=== PATIENT | male | born 1970 | race Two or more races ===

== ENCOUNTER 2024-07-23 18:18 | Inpatient (IN) | payer MEDICARE, OTHER ==
[~2024-07-23] VITALS: Ht 170.2 cm; Wt 101.6 kg
[2024-07-23] MEDS ORDERED: GABA-536 PO (18:35)
[2024-07-23] MEDS ORDERED: PHEN200C5 PO (18:35)
[2024-07-23] MEDS ORDERED: GLUC1KIT SQ (18:41)
[2024-07-23] MEDS ORDERED: FURO20TA4 PO (18:41)
[2024-07-23] MEDS ORDERED: MAGN400T26 PO (18:41)
[2024-07-23] MEDS ORDERED: MELA5TAB21 PO (18:41)
[2024-07-23] MEDS ORDERED: DOCU100C36 PO (18:41)
[2024-07-23] MEDS ORDERED: OXCA600T8 PO (18:41)
[2024-07-23] MEDS ORDERED: ATOR20TA PO (18:41)
[2024-07-23] MEDS ORDERED: BENZ0.5T43 PO (18:41)
[2024-07-23] MEDS ORDERED: LUBI24CA5 PO (18:41)
[2024-07-23] MEDS ORDERED: POLY17PO4 PO (18:41)
[2024-07-23] MEDS ORDERED: INSU100V28 SQ (18:41)
[2024-07-23] MEDS ORDERED: DEXT37.54 PO (18:41)
[2024-07-23] MEDS ORDERED: ACET325C7 PO (18:41)
[2024-07-23] MEDS ORDERED: FERR325T28 PO (18:41)
[2024-07-23 18:50] LABS: BASOPHILS # (AUTO) 0.1 K/UL (0.0-0.2); BASOPHILS % (AUTO) 0.5 % (0.0-2.0); EOSINOPHILS % (AUTO) 0.3 % (0.0-7.0); HEMATOCRIT 29.6 % (36.7-47.1); HEMOGLOBIN 9.4 g/dL (12.5-16.3); LYMPHOCYTES % (AUTO) 8.5 % (20.5-51.5); MEAN CORPUSCULAR HEMOGLOBIN 23.3 uug (23.8-33.4); MEAN CORPUSCULAR HGB CONC 32 g/dL (32.5-36.3); MEAN CORPUSCULAR VOLUME 73.7 fL (73.0-96.2); MONOCYTES # (AUTO) 0.6 K/uL (0.1-1.30); MONOCYTES % (AUTO) 4.8 % (0.0-11.0); NEUTROPHILS # (AUTO) 10.6 K/uL (1.8-8.9); NEUTROPHILS % (AUTO) 85.9 % (38.5-71.5); PLATELET COUNT (AUTO) 493 K/uL (152-348); RED BLOOD CELL COUNT(AUTO) 4.02 MIL/uL (4.06-5.63); RED CELL DISTRIBUTION WIDTH 21.4 % (12.1-16.2); WHITE BLOOD COUNT (AUTO) 12.4 K/uL (3.6-10.2)
[2024-07-23 18:52] LABS: DIFFERENTIAL COMMENT 1
[2024-07-23] MEDS ORDERED: PHENYTOIN SODIUM 250 MG/5 ML VIAL IV ONE (18:52)
[2024-07-23 19:00] LABS: CALCIUM 9.2 mg/dL (8.5-10.1); CREATININE 0.9 mg/dL (0.6-1.3); POTASSIUM 4.2 mmol/L (3.5-5.1)
[2024-07-23] MEDS: PHENYTOIN SODIUM IV 1,000 MG in IV NORMAL SALINE 100 ML IV ONE (19:10)
[2024-07-23] MEDS: IV NS 1000 ML 1,000 ML IV ONE (19:10)
[2024-07-23 19:13] LABS: ALBUMIN 2.4 g/dL (3.4-5.0); BILIRUBIN,TOTAL 0.2 mg/dL (0.2-1.0); PHENYTOIN (DILANTIN) 6.1 ug/mL (10.0-20.0); TOTAL PROTEIN, SERUM 8.5 g/dL (6.4-8.2)
[2024-07-24] VITALS (8 sets, daily range): BP systolic 111–130; BP diastolic 60–70; TEMP 98.1–99.5; O2SAT 93–100
[2024-07-24] MEDS ORDERED: LORAZEPAM 2 MG/1 ML VIAL IV PRN (00:30)
[2024-07-24] MEDS ORDERED: REMEDY ESSENTIAL ZINC PASTE 113 GM TP PRN (00:30)
[2024-07-24] MEDS ORDERED: MAGNESIUM HYDROXIDE 30 ML LIQUID UDC PO PRN (00:30)
[2024-07-24] MEDS ORDERED: ONDANSETRON 4 MG/2 ML VIAL IV PRN (00:30)
[2024-07-24] MEDS ORDERED: PHENYTOIN SODIUM 100 MG/2 ML VIAL IV ONE (05:00)
[2024-07-24] MEDS: ACETAMINOPHEN 325 MG TABLET PO PRN (05:09)
[2024-07-24] MEDS: IV NS 1000 ML 1,000 ML IV PRN (05:10)
[2024-07-24] MEDS: PHENYTOIN SODIUM IV SCH (05:11)
[2024-07-24] MEDS: NORMAL SALINE IV SCH (05:11)
[2024-07-24] MEDS: PANTOPRAZOLE SODIUM 40 MG TABLET.DR PO SCH (06:20)
[2024-07-24 06:44] LABS: BASOPHILS # (AUTO) 0.1 K/UL (0.0-0.2); BASOPHILS % (AUTO) 0.5 % (0.0-2.0); EOSINOPHILS % (AUTO) 0.1 % (0.0-7.0); HEMATOCRIT 24.6 % (36.7-47.1); LYMPHOCYTES % (AUTO) 10.4 % (20.5-51.5); MEAN CORPUSCULAR HEMOGLOBIN 23.8 uug (23.8-33.4); MEAN CORPUSCULAR HGB CONC 33 g/dL (32.5-36.3); MEAN CORPUSCULAR VOLUME 73.2 fL (73.0-96.2); MONOCYTES # (AUTO) 0.8 K/uL (0.1-1.30); MONOCYTES % (AUTO) 9.2 % (0.0-11.0); NEUTROPHILS # (AUTO) 7.3 K/uL (1.8-8.9); NEUTROPHILS % (AUTO) 79.8 % (38.5-71.5); PLATELET COUNT (AUTO) 374 K/uL (152-348); RED BLOOD CELL COUNT(AUTO) 3.36 MIL/uL (4.06-5.63); RED CELL DISTRIBUTION WIDTH 20.9 % (12.1-16.2); WHITE BLOOD COUNT (AUTO) 9.2 K/uL (3.6-10.2)
[2024-07-24 06:55] LABS: CALCIUM 8.3 mg/dL (8.5-10.1); CREATININE 0.8 mg/dL (0.6-1.3); DIFFERENTIAL COMMENT 1; MAGNESIUM 1.5 mg/dL (1.8-2.4); PHENYTOIN (DILANTIN) 10.8 ug/mL (10.0-20.0); PHOSPHOROUS 3.4 mg/dL (2.5-4.9); POTASSIUM 3.4 mmol/L (3.5-5.1)
[2024-07-24] MEDS ORDERED: ACET-2154 PO (09:51)
[2024-07-24] MEDS ORDERED: MELA5TAB PO (09:51)
[2024-07-24] MEDS: MAGNESIUM OXIDE 400 MG TABLET PO ONE (10:06)
[2024-07-24] MEDS: POTASSIUM CHLORIDE 20 MEQ TAB.PRT.SR PO ONE (10:06)
[2024-07-24] MEDS ORDERED: IOHEXOL 300MG/ML 100 ML INFUS..BTL ONE (10:41)
[2024-07-24] MEDS ORDERED: IV NORMAL SALINE 250 ML IV ONE (10:41)
[2024-07-24] MEDS ORDERED: SWABABLE VALVE TRANSFER SET EA MC ONE (10:41)
[2024-07-24] MEDS ORDERED: DEXTROSE 50% 50 ML DISP.SYRIN IV PRN ×2 (11:30)
[2024-07-24] MEDS ORDERED: INSULIN REGULAR, HUMAN 1000 UNIT/10 ML VIAL SQ PRN (11:30)
[2024-07-24] MEDS ORDERED: PHENYTOIN SODIUM 200 MG PO SCH (13:00)
[2024-07-24] MEDS: BLOOD SUGAR DIAGNOSTIC 1 EACH STRIP VI SCH (13:00)
[2024-07-24] MEDS: OXCARBAZEPINE 300 MG TABLET PO SCH (13:26)
[2024-07-24] MEDS: GABAPENTIN 400 MG CAPSULE PO SCH (13:26)
[2024-07-24] MEDS: PHENYTOIN SODIUM EXTENDED 100 MG CAPSULE.SA PO SCH ×2 (13:31→14:48)
[2024-07-24 15:39] LABS: THYROID STIMULATING HORMONE 3.085 mIU/mL (0.358-3.740)
[2024-07-24] MEDS: BENZTROPINE MESYLATE 0.5 MG TABLET PO SCH (17:08)
[2024-07-24] MEDS ORDERED: BLOOD SUGAR DIAGNOSTIC 1 EACH STRIP VI SCH (21:00)
[2024-07-24] MEDS: ATORVASTATIN 20 MG TABLET PO SCH (21:10)
[2024-07-25] VITALS (9 sets, daily range): BP systolic 109–132; BP diastolic 51–75; TEMP 98.2–100; O2SAT 92–99
[2024-07-25 07:02] LABS: BASOPHILS % (AUTO) 0.6 % (0.0-2.0); CALCIUM 7.9 mg/dL (8.5-10.1); CARBON DIOXIDE 28 mmol/L (21-32); CHLORIDE 102 mmol/L (98-107); CREATININE 0.6 mg/dL (0.6-1.3); DIFFERENTIAL COMMENT 0; EOSINOPHILS % (AUTO) 0.6 % (0.0-7.0); GLUCOSE 83 mg/dL (74-106); HEMATOCRIT 25.9 % (36.7-47.1); HEMOGLOBIN 8.4 g/dL (12.5-16.3); LYMPHOCYTES % (AUTO) 14.7 % (20.5-51.5); MAGNESIUM 1.7 mg/dL (1.8-2.4); MEAN CORPUSCULAR HEMOGLOBIN 23.8 uug (23.8-33.4); MEAN CORPUSCULAR HGB CONC 32 g/dL (32.5-36.3); MEAN CORPUSCULAR VOLUME 73.5 fL (73.0-96.2); MONOCYTES # (AUTO) 0.7 K/uL (0.1-1.30); MONOCYTES % (AUTO) 10.1 % (0.0-11.0); PHOSPHOROUS 3.3 mg/dL (2.5-4.9); PLATELET COUNT (AUTO) 352 K/uL (152-348); POTASSIUM 3.3 mmol/L (3.5-5.1); RED BLOOD CELL COUNT(AUTO) 3.53 MIL/uL (4.06-5.63); RED CELL DISTRIBUTION WIDTH 20.7 % (12.1-16.2); SODIUM SERUM 138 mmol/L (136-145); UREA NITROGEN, BLOOD 8 mg/dL (7-18); WHITE BLOOD COUNT (AUTO) 6.8 K/uL (3.6-10.2)
[2024-07-25] MEDS: FUROSEMIDE 20 MG TABLET PO SCH (08:53)
[2024-07-25] MEDS: MAGNESIUM OXIDE 400 MG TABLET PO SCH (08:53)
[2024-07-25] MEDS: FERROUS SULFATE 325 MG TABEC PO SCH (08:53)
[2024-07-25] MEDS: MIRALAX 17 GM POWD.PACK PO SCH (08:54)
[2024-07-25] MEDS: INSULIN REGULAR, HUMAN 1000 UNIT/10 ML VIAL SQ PRN (12:03)
[2024-07-25] MEDS: POTASSIUM CHLORIDE 20 MEQ TAB.PRT.SR PO ONE (12:50)
[2024-07-25 13:44] LABS: BILIRUBIN,DIRECT 0.1 mg/dL (0.0-0.2); BILIRUBIN,TOTAL 0.1 mg/dL (0.2-1.0)
[2024-07-26 05:37] VITALS: BP 101/71; TEMP 99.5; O2SAT 95
[2024-07-26 06:07] LABS: HEPATITIS B SURFACE AB, QUAL Reactive (.); HEPATITIS B SURFACE AG Negative (Negative); HEPATITIS C VIRUS ANTIBODY Non Reactive (Non Reactive)
[2024-07-26 07:34] VITALS: BP 126/72; TEMP 98.4; O2SAT 96
[2024-07-26 07:34] LABS: BASOPHILS % (AUTO) 0.6 % (0.0-2.0); EOSINOPHILS # (AUTO) 0.1 K/uL (0.0-0.7); EOSINOPHILS % (AUTO) 0.9 % (0.0-7.0); HEMATOCRIT 27.6 % (36.7-47.1); HEMOGLOBIN 8.8 g/dL (12.5-16.3); LYMPHOCYTES # (AUTO) 1.1 K/uL (0.8-4.8); LYMPHOCYTES % (AUTO) 19.9 % (20.5-51.5); MEAN CORPUSCULAR HEMOGLOBIN 23.6 uug (23.8-33.4); MEAN CORPUSCULAR HGB CONC 32 g/dL (32.5-36.3); MEAN CORPUSCULAR VOLUME 73.9 fL (73.0-96.2); MONOCYTES # (AUTO) 0.4 K/uL (0.1-1.30); MONOCYTES % (AUTO) 7.7 % (0.0-11.0); NEUTROPHILS % (AUTO) 70.9 % (38.5-71.5); PLATELET COUNT (AUTO) 375 K/uL (152-348); RED BLOOD CELL COUNT(AUTO) 3.73 MIL/uL (4.06-5.63); RED CELL DISTRIBUTION WIDTH 20.7 % (12.1-16.2); WHITE BLOOD COUNT (AUTO) 5.7 K/uL (3.6-10.2)
[2024-07-26 07:42] LABS: DIFFERENTIAL COMMENT 1
[2024-07-26 07:46] LABS: CALCIUM 8.3 mg/dL (8.5-10.1); CARBON DIOXIDE 29 mmol/L (21-32); CHLORIDE 103 mmol/L (98-107); CREATININE 0.6 mg/dL (0.6-1.3); GLUCOSE 91 mg/dL (74-106); MAGNESIUM 1.7 mg/dL (1.8-2.4); PHOSPHOROUS 3.5 mg/dL (2.5-4.9); POTASSIUM 3.6 mmol/L (3.5-5.1); SODIUM SERUM 140 mmol/L (136-145); UREA NITROGEN, BLOOD 9 mg/dL (7-18)
[2024-07-26 08:10] LABS: FOLATE (FOLIC ACID), SERUM 5.7 ng/mL (>3.0)
[2024-07-26] MEDS: CYANOCOBALAMIN 100 MCG TABLET PO SCH (08:42)
[2024-07-26 10:52] VITALS: BP 116/75; TEMP 98.6; O2SAT 97
[2024-07-26] MEDS ORDERED: PHEN100C4 PO (11:21)
[2024-07-26] MEDS: MAGNESIUM OXIDE 400 MG TABLET PO ONE (11:32)
[2024-07-26 16:04] VITALS: BP 118/64; TEMP 98.8; O2SAT 94
[2024-07-26 19:00] VITALS: BP 124/64; TEMP 98.6; O2SAT 94
[2024-07-26 19:57] VITALS: O2SAT 97
[2024-07-26] MEDS: PHENYTOIN SODIUM EXTENDED 100 MG CAPSULE.SA PO SCH (22:00)
[2024-07-27 00:10] VITALS: BP 118/75; TEMP 99.4; O2SAT 89
[2024-07-27 04:39] VITALS: BP 148/70; TEMP 98.9; O2SAT 100
[2024-07-27 05:27] LABS: BASOPHILS % (AUTO) 0.7 % (0.0-2.0); EOSINOPHILS # (AUTO) 0.1 K/uL (0.0-0.7); EOSINOPHILS % (AUTO) 1.5 % (0.0-7.0); HEMATOCRIT 27.3 % (36.7-47.1); HEMOGLOBIN 8.8 g/dL (12.5-16.3); LYMPHOCYTES # (AUTO) 1.1 K/uL (0.8-4.8); LYMPHOCYTES % (AUTO) 23.2 % (20.5-51.5); MEAN CORPUSCULAR HEMOGLOBIN 23.9 uug (23.8-33.4); MEAN CORPUSCULAR HGB CONC 32 g/dL (32.5-36.3); MEAN CORPUSCULAR VOLUME 73.9 fL (73.0-96.2); MONOCYTES # (AUTO) 0.4 K/uL (0.1-1.30); MONOCYTES % (AUTO) 8.8 % (0.0-11.0); NEUTROPHILS # (AUTO) 3.2 K/uL (1.8-8.9); NEUTROPHILS % (AUTO) 65.8 % (38.5-71.5); PLATELET COUNT (AUTO) 390 K/uL (152-348); RED BLOOD CELL COUNT(AUTO) 3.69 MIL/uL (4.06-5.63); RED CELL DISTRIBUTION WIDTH 20.7 % (12.1-16.2); WHITE BLOOD COUNT (AUTO) 4.9 K/uL (3.6-10.2)
[2024-07-27 05:30] LABS: DIFFERENTIAL COMMENT 1
[2024-07-27 05:32] LABS: CALCIUM 8.1 mg/dL (8.5-10.1); CARBON DIOXIDE 30 mmol/L (21-32); CHLORIDE 103 mmol/L (98-107); CREATININE 0.6 mg/dL (0.6-1.3); GLUCOSE 86 mg/dL (74-106); MAGNESIUM 1.7 mg/dL (1.8-2.4); PHOSPHOROUS 3.4 mg/dL (2.5-4.9); POTASSIUM 3.6 mmol/L (3.5-5.1); SODIUM SERUM 139 mmol/L (136-145); UREA NITROGEN, BLOOD 8 mg/dL (7-18)
[2024-07-27 08:00] VITALS: BP 126/81; TEMP 98.9; O2SAT 96
[2024-07-27] MEDS: DOCUSATE SODIUM 100 MG CAPSULE PO PRN (08:14)
[2024-07-27 11:30] VITALS: BP 121/71; TEMP 97; O2SAT 96
== END 2024-07-27 11:57 | DRG 100 ==
LOC: ER 18:53 → TELE3 07-24 00:15
PROVIDERS: ADMIT Nurse Practitioner Family; ATTEND Nurse Practitioner Acute Care
PROC: 05HC33Z Insertion of Infusion Device into Left Basilic Vein, Percutaneous Approach (ICD-10-PCS; principal; 2024-07-24)
DX: G40.909 Epilepsy, unspecified, not intractable, without status epilepticus (principal); G93.41 Metabolic encephalopathy; J98.11 Atelectasis; C85.92 Non-Hodgkin lymphoma, unspecified, intrathoracic lymph nodes; J81.1 Chronic pulmonary edema; J90 Pleural effusion, not elsewhere classified; D63.8 Anemia in other chronic diseases classified elsewhere; E88.09 Other disorders of plasma-protein metabolism, not elsewhere classified; E11.65 Type 2 diabetes mellitus with hyperglycemia; Z90.49 Acquired absence of other specified parts of digestive tract; D50.9 Iron deficiency anemia, unspecified; E78.5 Hyperlipidemia, unspecified; I25.10 Atherosclerotic heart disease of native coronary artery without angina pectoris; D72.829 Elevated white blood cell count, unspecified; D75.839 Thrombocytosis, unspecified; E87.6 Hypokalemia; E83.51 Hypocalcemia; E83.42 Hypomagnesemia; J45.909 Unspecified asthma, uncomplicated; I10 Essential (primary) hypertension; Z74.01 Bed confinement status; R10.32 Left lower quadrant pain; R59.0 Localized enlarged lymph nodes; R16.2 Hepatomegaly with splenomegaly, not elsewhere classified; R41.841 Cognitive communication deficit; Z79.4 Long term (current) use of insulin; Z79.899 Other long term (current) drug therapy
CPT/HCPCS: 36415; 70450; 71045; 71260; 82746; 83010; 83550; 83605; 83615; 83735; 83921; 84100; 84443; 84484; 85025; 86706; 86803; 87040; 87340; A4606; A4663; G0378; J1165; J1815; J7040; Q9967